=== PATIENT | female | born 1955 | race Caucasian/White ===

== ENCOUNTER → 2016-11-12 | Outpatient (CLI) | payer OTHER | LOC: RAD 11:19 | DX: Z12.31 Encounter for screening mammogram for malignant neoplasm of breast (principal) ==

== ENCOUNTER → 2017-01-07 | Outpatient (CLI) | payer OTHER ==
[~2017-01-07] VITALS: Ht 175.3 cm; Wt 68.0 kg
[~2017-01-07] MED LIST: NORVASC5 MG PO
--- NOTE | ~2017-01-07 | P ---
[facility] [place] [address] PROCEDURE REPORT Name: OMKAR MARROQUIN Room #: REG [facility].#: [id number] Admission: 01/07/17 Attend Phys: Sergei Gibbs MD Discharge: Date of : 53 Report #: [id number] THIS REPORT FOR: //name// CC: Tamela Gibbs BRIEF HISTORY: The patient is a 61-year-old woman for average risk screening colonoscopy. PREOPERATIVE DIAGNOSIS: Average risk screening colonoscopy. POSTOPERATIVE DIAGNOSES: 1. Multiple colon polyps. 2. Moderate sigmoid diverticulosis coli. 3. Small internal hemorrhoids and tags. MEDICATIONS: Deep sedation with propofol per anesthesia. SPECIMENS: 1. Polyp at 40 cm. 2. Polyp cecum. 3. Polyps times 3 hepatic flexure. 4. Polyp, mid transverse colon. 5. Polyp at 70 cm. 6. Polyp at 60 cm. ESTIMATED BLOOD LOSS: 3 mL. PROCEDURE: Colonoscopy to cecum and terminal ileum with snare polypectomy and biopsy. FINDINGS: Prior to propofol sedation, procedure of colonoscopy discussed with the patient as well as potential risks, benefits, and complications. She indicates she understands and desires to proceed. With the patient in left lateral decubitus position, digital examination was completed, which revealed no abnormalities. Subsequently, the [employer] video colonoscope was introduced in the rectum, advanced under direct vision to the cecum. Done with minimal difficulty. The cecum was identified by the ileocecal valve and the appendiceal orifice. I was able to advance the scope across the ileocecal valve and visualize the distal segment of terminal ileum, which was inspected and noted to be unremarkable. At that point, the scope was slowly withdrawn and careful circumferential views were obtained including retroflexing the scope in the ascending colon. Upon slow withdrawal of the scope, multiple polyps were identified. In the cecum, a diminutive polyp was seen and removed by biopsy. At the hepatic flexure, three diminutive polyps were seen and [facility] [address] [place] [address] PROCEDURE REPORT Name: OMKAR MARROQUIN Room #: REG [facility].#: [id number] Admission: 01/07/17 Attend Phys: Sergei Gibbs MD Discharge: Date of : 53 Report #: [id number] removed by biopsy. As we withdrew the scope, a diminutive polyp was seen and removed by biopsy from the mid transverse colon. At 70 cm, a 4-5 mm flat polyp was seen and removed by cold snare polypectomy. At 60 cm, a diminutive polyp was seen and removed by biopsy. At 40 cm, a 4-5 mm sessile polyp was seen and removed by cold snare polypectomy. As we withdrew the scope through the sigmoid colon, moderate diverticular disease was seen without endoscopic evidence of diverticulitis. Scope was withdrawn into the rectum. Upon retroflexion, small hemorrhoids and internal tags were seen. Scope was withdrawn and the patient tolerated the procedure well. CONDITION OF THE PATIENT UPON DISCHARGE: We will follow up on the path report. However, due to the number of polyps identified today, we will have her return in 3 years. These all appear to be small adenomas. She did mention some fleeting low abdominal pelvic pain, which I think is unrelated to her colon. If those symptoms should persist, she should return to the office to consider further evaluation as needed. This is the patient's first colonoscopy. Withdrawal time from cecum was 18 minutes and 8 seconds. By: 0814 0838 Sergei Gibbs MD /nt
--- NOTE | ~2017-01-07 | S ---
[facility] [address] [place] [address] SURGICAL PATH RPT PROCEDURE Name: ANDREINA MARROQUIN Room #: REG KELLIE M.Carolann.#: [id number] Admission: 01/07/17 Date of : 53 Discharge: Report #: [id number] Path Case #: [id number] PATHOLOGY REPORT COLLECTION DATE: 01/07/2017 RECEIVED DATE: 01/07/2017 SUBMITTING PHYS: Dr. Sergei Gibbs OTHER PHYS: CHILO Tarango SPECIMEN(S) RECEIVED: A.Colon polyp at 60 cm B.Colon polyp at 40 cm C.Cecal polyp D.Hepatic flexure polyps x3 E.Mid transverse polyp F.Colon polyp at 70 cm * * * * * * * * * * * * FINAL DIAGNOSIS: A. Polyp, at 60 cm, endoscopic biopsy: - Hyperplastic polyp. - Negative for dysplasia. B. Polyp, at 40 cm, endoscopic biopsy: - Tubular adenoma. - Negative for high-grade dysplasia. C. Polyp, at cecum, endoscopic biopsy: - Tubular adenoma. - Negative for high-grade dysplasia. D. Polyp x3, at hepatic flexure, endoscopic biopsy: - Two fragment showing tubular adenomas without high-grade dysplasia. - Remainder of fragments showing hyperplastic changes and a lymphoid aggregate. E. Polyp, at mid transverse polyp, endoscopic biopsy: - Tubular adenoma admixed with hyperplastic changes. - Negative for high-grade dysplasia. F. Polyp, at 70 cm, endoscopic biopsy: - Inflammatory polyp with hyperplastic changes. - Negative for dysplasia. (IUV:vin; 01/08/2017) PATHOLOGIST: Laly Bhandari M.D. REPORT ELECTRONICALLY SIGNED BY: Laly Bhandari M.D. DATE/TIME: 01/08/2017 13:16 * * * * * * * * * * * * GROSS PATHOLOGY: [facility] [address] [place] [address] SURGICAL PATH RPT PROCEDURE Name: ANDREINA MARROQUIN Room #: REG KELLIE Olivas#: [id number] Admission: 01/07/17 Date of : 53 Discharge: Report #: [id number] Path Case #: [id number] A. Received in formalin labeled "Andreina Marroquin, polyp at 60 cm," are 3 segments of singer soft tissue measuring 0.9 x 0.4 x 0.3 cm in aggregate dimensions and ranging from 0.3 to 0.4 cm in maximum dimension. The specimen is submitted entirely in cassette A1. B. Received in formalin labeled "Andreina Marroquin, polyp at 40 cm," is a segment of singer soft tissue measuring 0.6 cm in maximum dimension. The specimen is submitted entirely in cassette B1. C. Received in formalin labeled "Andreina Marroquin, polyp at cecum," are 2 segments of singer soft tissue measuring 0.5 x 0.2 x 0.1 cm in aggregate dimensions and ranging from 0.2 to 0.3 cm in maximum dimension. The specimen is submitted entirely in cassette C1. D. Received in formalin labeled "Andreina Marroquin, polyp at hepatic flexure 3," are 4segments of singer soft tissue measuring 1.5 x 1.2 x 0.3 cm in aggregate dimensions and ranging from 0.3 to 0.5 cm in maximum dimension. The specimen is submitted entirely in cassette D1 shaped. E. Received in formalin labeled "Andreina Marroquin, polyp at mid transverse," are 2 segments of singer soft tissue measuring 0.5 x 0.2 x 0.3 cm in aggregate dimensions and ranging from 0.2 to 0.3 cm in maximum dimension. The specimen is submitted entirely in cassette E1. F. Received in formalin labeled "Andreina Marroquin, polyp at 70 cm," are 2 segments of singer soft tissue measuring 0.7 x 0.4 x 0.3 cm in aggregate dimensions and ranging from 0.3 to 0.4 cm in maximum dimension. The specimen is submitted entirely in cassette F1. (TSD; 01/07/2017) CLINICAL HISTORY: Pre-OP DX: Screening Post-OP DX: Colon polyps, diverticulosis, hemorrhoids INITIAL CPT CODE(S): A; 18602 B; 26255 C; 88972 D; 21572 E; 24050 F; 94330 Professional services performed by [facility] at [address] , [place] [address] Technical services performed by [facility] at [address] [place] [address], [address], [place] [address]. [facility] [address] [place] [address] SURGICAL PATH RPT PROCEDURE Name: ANDREINA MARROQUIN Room #: REG KELLIE Olivas#: [id number] Admission: 01/07/17 Date of : 53 Discharge: Report #: [id number] Path Case #: [id number] [address] PHONE: [phone] DIRECTOR: Taiwo Méndez M.D. * * * END OF REPORT * * *
== END | disposition home or self-care (01) ==
LOC: GI 06:16
DX: Z12.11 Encounter for screening for malignant neoplasm of colon (principal); D12.5 Benign neoplasm of sigmoid colon; D12.0 Benign neoplasm of cecum; D12.3 Benign neoplasm of transverse colon; K63.5 Polyp of colon; K57.30 Diverticulosis of large intestine without perforation or abscess without bleeding; K64.8 Other hemorrhoids; K64.4 Residual hemorrhoidal skin tags; I10 Essential (primary) hypertension; Z87.891 Personal history of nicotine dependence; Z98.890 Other specified postprocedural states; Z88.0 Allergy status to penicillin; Z79.899 Other long term (current) drug therapy

== ENCOUNTER → 2018-04-24 | Outpatient (CLI) | payer OTHER | LOC: RAD 10:31 | DX: Z12.31 Encounter for screening mammogram for malignant neoplasm of breast (principal) ==

== ENCOUNTER → 2020-04-25 | Outpatient (CLI) | payer OTHER ==
[2020-04-25 10:40] LABS: ABSOLUTE NEUTROPHILS 3.7 thou/uL (1.4-8.2); BASOPHILS 0.9 % (0.0-2.0); EOSINOPHILS 2.8 % (0.0-3.0); HEMATOCRIT 39.7 % (37.0-47.0); HEMOGLOBIN 13.1 gm/dL (12.0-15.0); LYMPHOCYTES 26.7 % (24.0-44.0); MCHC 33.1 g/dL (28.0-37.0); MCV 90.7 fL (80.0-100.0); MONOCYTES 8.7 % (1.0-8.0); PLATELET COUNT 270 thou/uL (150-400); POLYS 60.9 % (36.0-66.0); RBC 4.37 mil/uL (4.20-5.00); RDW 13.7 % (10.5-14.5); WBC 6.1 thou/uL (4.0-11.0)
[2020-04-25 11:29] LABS: ALBUMIN 3.8 g/dL (3.4-5.0); ANION GAP 11 mmol/L (7-16); BUN 13 mg/dL (7-18); CALCIUM 9.4 mg/dL (8.5-10.1); CHLORIDE 106 mmol/L (98-107); CHOLESTEROL 239 mg/dL (<200); CO2 25 mmol/L (21-32); GLUCOSE 97 mg/dL (74-106); HDL CHOLESTEROL 86 mg/dL (>40); LDL CHOLESTEROL 136 mg/dL (<100); POTASSIUM 4.2 mmol/L (3.5-5.1); SGOT 24 U/L (15-37); SGPT 25 U/L (30-65); SODIUM 142 mmol/L (136-145); TC:HDL 2.8 Ratio (Not establshd); TOTAL BILIRUBIN 0.6 mg/dL (0.2-1.0); TOTAL PROTEIN 7.7 g/dL (6.4-8.2); TRIGLYCERIDE 85 mg/dL (<150); VLDL 17 mg/dL (<40)
== END ==
LOC: BC 08:09 → LAB 08:09 → BC 09:35
PROVIDERS: ATTEND Nurse Practitioner
DX: Z13.220 Encounter for screening for lipoid disorders (principal); Z12.31 Encounter for screening mammogram for malignant neoplasm of breast; I10 Essential (primary) hypertension; N64.89 Other specified disorders of breast

== ENCOUNTER → 2020-06-29 | Outpatient (CLI) | payer OTHER | LOC: LAB 07:09 | PROVIDERS: Specialist; ATTEND Student in an Organized Health Care Education/Training Program | DX: Z01.812 Encounter for preprocedural laboratory examination (principal); Z20.822 Contact with and (suspected) exposure to COVID-19 ==

== ENCOUNTER → 2020-07-01 | Outpatient (CLI) | payer OTHER ==
[~2020-07-01] VITALS: Ht 175.3 cm; Wt 72.6 kg
--- NOTE | 2020-07-04 18:06 | PATH ---
[facility] [place] [address] PATHOLOGY RPT PROCEDURE Name: ANDREINA MARROQUIN Room #: REG KELLIE Elizabeth.#: [id number] Admission: 07/01/20 Date of : 53 Discharge: Report #: [id number] Path Case #: [id number] [facility] Accession Number: [id number] . 01 Material submitted: . PART A: cecum - CECAL POLYP PART B: colon - ASCENDING COLON POLYP. Modifiers: ascending PART C: sigmoid colon - SIGMOID POLYP PART D: rectum - RECTAL POLYP . 01 Clinical history: . DTS/COLONOSCOPY/HX OF POLYPS . 02 Diagnosis: A. Polyp, cecal polyp, endoscopic biopsy: - Tubular adenoma. - Negative for high-grade dysplasia. . B. Polyp, ascending colon polyp, endoscopic biopsy; - Tubular adenoma. - Negative for high-grade dysplasia. . C. Polyp, sigmoid polyp, endoscopic biopsy: - Tubular adenoma. - Negative for high-grade dysplasia. . D. Polyp, rectal polyp, endoscopic biopsy: - Superficial fragments of hyperplastic polyp. - Negative for dysplasia. . 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 02 Electronically signed: . Laly Bhandari MD, Pathologist NPI- [id number] . 01 Gross description: . A. Received in formalin labeled "Andreina Marroquin, cecal polyp" are multiple fragments of singer-brown soft tissue measuring in aggregate 0.8 x 0.5 x 0.1 cm. The specimen is submitted entirely in A1. . B. Received in formalin labeled "Andreina Marroquin, ascending colon polyp" is a fragment of singer-brown soft tissue measuring 0.3 x 0.3 x 0.1 cm. The specimen is submitted entirely in B1. . C. Received in formalin labeled "Andreina Marroquin, sigmoid polyp" are [address] [place] [address] PATHOLOGY RPT PROCEDURE Name: ANDREINA MARROQUIN Room #: REG [facility].#: [id number] Admission: 07/01/20 Date of : 53 Discharge: Report #: [id number] Path Case #: [id number] fragments of singer-brown soft tissue measuring in aggregate 0.8 x 0.8 x 0.2 cm. The specimen is submitted entirely in C1. . D. Received in formalin labeled "Andreina Marroquin, rectal polyp" are multiple minute fragments of singer-brown soft tissue measuring in aggregate 0.2 x 0.2 x 0.1 cm. The specimen is submitted entirely in D1. ([facility]; 07/02/2020) [facility] 07/02/2020 1408 Local . 02 Pathologist provided ICD-10: D12.0, D12.2, D12.5, K62.1 . 02 CPT . 237570, 702573, 979628, 496096 Specimen Comment: A courtesy copy of this report has been sent to [phone] Specimen Comment: Report sent to Performed at: [address] [facility], [place], [place] [id number] MD Kalpesh Bishop MD Phone: [phone] Performed at: [address] [id number] MD Laly Bhandari MD Phone: [phone]
--- NOTE | 2020-07-06 08:15 | P ---
[facility] [place] [address] PROCEDURE REPORT Name: OMKAR MARROQUIN Room #: REG BENIGNOMarsha Johnson.#: [id number] Admission: 07/01/20 Attend Phys: Tahir Kaur Discharge: Date of : 53 Report #: [id number] THIS REPORT FOR: cc: Khushboo Valadez DNP, Mary E. DNP McElhinney, Christian C. MD ~ DOC #: [id number] cc: BASIM Jamil MD DATE OF SERVICE: 07/01/2020 PROCEDURE PERFORMED: Colonoscopy with polypectomies. HISTORY OF PRESENT ILLNESS: The patient is a 64-year-old female who presents today with a history of polyps, last colonoscopy was 4 years ago. She denies any symptoms. No family history of colon cancer. DESCRIPTION OF PROCEDURE: The risks and benefits of the procedure were explained to the patient, those risks including but not limited to bleeding, perforation and the risk of sedation. She understood these risks and gave informed consent. Sedation was given using propofol per anesthesia. Next, a digital rectal exam was initially performed, which was normal. Next, using a standard Olympus colonoscope, the scope was placed in the patient's anus and advanced under direct vision to the cecum. The overall prep was excellent. In the cecum, there was a 4 mm sessile polyp. This was removed with cold forceps, otherwise normal. The ileocecal valve was normal. In the ascending colon, a 3 mm sessile polyp was noted. This was also removed with cold forceps. The transverse and descending colon were normal. Multiple small diverticula were noted in the sigmoid colon. Also noted was a 7 mm pedunculated polyp in the sigmoid colon. This was removed by snare cautery. The rectal mucosa showed a 3 mm sessile polyp, removed by cold forceps. On retroflexion, no abnormalities were noted. The scope was then withdrawn and the procedure terminated. The patient tolerated the procedure well. IMPRESSION: 1. Colonic polyps as described above. 2. Sigmoid diverticulosis. 3. Otherwise, normal colonoscopy. RECOMMENDATIONS: 1. Await biopsy results. 2. Repeat colonoscopy in 5 years. Thank you for allowing me to participate in her care. [address] [address] PROCEDURE REPORT Name: LOPEZOMKAR Room #: REG [facility] Elizabeth.#: [id number] Admission: 07/01/20 Attend Phys: Tahir Kaur Discharge: Date of : 53 Report #: [id number] Tahir Qiu MD CCM/SHAUN <ELECTRONICALLY SIGNED> By: Tahir Qiu MD 07/06/20 0815 0919 32 Tahir Qiu MD /nt
== END | disposition home or self-care (01) ==
LOC: GI 07:51
PROVIDERS: ATTEND Specialist
DX: Z12.11 Encounter for screening for malignant neoplasm of colon (principal); Z86.010 Personal history of colon polyps; D12.0 Benign neoplasm of cecum; D12.2 Benign neoplasm of ascending colon; D12.5 Benign neoplasm of sigmoid colon; K62.1 Rectal polyp; K57.30 Diverticulosis of large intestine without perforation or abscess without bleeding; I10 Essential (primary) hypertension; Z98.890 Other specified postprocedural states; Z79.899 Other long term (current) drug therapy; Z87.891 Personal history of nicotine dependence; Z88.8 Allergy status to other drugs, medicaments and biological substances
CPT/HCPCS: 62110; 62900